=== PATIENT | male | born 1955 | race Caucasian/White ===

== ENCOUNTER 2022-10-21 13:31 | Emergency (ER) | payer BC, MEDICARE ==
[~2022-10-21] VITALS: Ht 165.1 cm; Wt 113.0 kg
[2022-10-21 13:34] VITALS: BP 119/100; PULSE 63; RESP 20; TEMP 98.3; O2SAT 99
== END 2022-10-21 16:48 | disposition home or self-care (01) ==
LOC: ER 13:38
DX: H61.21 Impacted cerumen, right ear (principal); E78.00 Pure hypercholesterolemia, unspecified; I10 Essential (primary) hypertension; Z98.890 Other specified postprocedural states
CPT/HCPCS: 69210; 99282